=== PATIENT | female | born 1935 | race Caucasian/White ===

== ENCOUNTER 2016-06-27 11:25 | Inpatient (IN) | payer MEDICARE, OTHER ==
[~2016-06-27] VITALS: Ht 160 cm; Wt 76.6 kg
[~2016-06-27 11:25] MED LIST: ALBUTEROL0.83 MG/ML IH; AMBIEN 5MG TABLE5 MG PO; ARICEPT ODT10 MG PO; ARICEPT PO; ARICEPT10 MG PO; ASPIR-LOW81 MG PO; ATIVAN 1MG T1 MG/TAB PO; BUSPAR DIVIDOSE15 MG PO; BUSPAR5 MG PO; COLACE 100100 MG/CAP PO; ENABLEX 7.5MG7.5 MG PO; ENABLEX PO; FUROSEMIDE PO; IPRATROPIUM BROM3 M1 IH; LASIX 20MG TABL20 MG PO; LASIX 40MG TABL40 MG PO; LEVAQUIN 5500 MG/TAB PO; MVI PO; NAMENDA XR 28MG PO; OSCAL 500 TAB500 MG PO; PAXIL 10MG10 MG PO; PAXIL 30MG30 MG PEG; PAXIL 30MG30 MG PO; PAXIL40 MG PO; PREDNISONE20 MG PO; PROMETRIUM100 MG/CAP PO; RT SPIRIVA18 MCG IH; SANCTURA PO; SPIRIVA INH IN; SYNTHROID 0.0.025 MG PO; SYNTHROID0.05 MG/TA PO; THYROID; THYROID PO; TYLENOL #2 3001 TAB PO; VITAMIN D PO; ZIAC 5/6.25MG T1 TAB PO; ZYVOX 600MG600 MG PO; [UNRECOGNIZED DRUG - OTHER]; [UNRECOGNIZED DRUG - OTHER] PO
[2016-06-27] MEDS ORDERED: BUSPAR DIVIDOSE15 MG PO (12:01)
[2016-06-27] MEDS ORDERED: THE MEDICINE S200 M2 PO (12:04)
[2016-06-27] MEDS ORDERED: VITAMIN D31000 IU PO (12:04)
[2016-06-27 12:44] LABS: HEMATOCRIT 42.2 % (37.0-47.0); HEMOGLOBIN 13.6 g/dl (12.5-16.0); MEAN CELL VOLUME 92 fl (80.0-100.0); MEAN CORPUSCULAR HEMOGLOBIN 30 pg (27.0-31.0); MEAN CORPUSCULAR HGB CONC 32 g/dl (33.0-37.0); MEAN PLATELET VOLUME 10.7 fl (7.4-10.4); PLATELET COUNT 193 K/mm3 (130-400); RED BLOOD COUNT 4.59 M/mm3 (4.10-5.30); REDCELL DISTRIBUTION WIDTH-CV 12.7 % (11.5-14.5); WHITE BLOOD COUNT 18.1 K/mm3 (4.8-10.8)
[2016-06-27 12:48] LABS: ADD PATHOLOGY DIFF REVIEW NO
[2016-06-27 12:52] LABS: ADJUSTED CALCIUM 9.6 mg/dL (8.4-10.2); BILIRUBIN,TOTAL 1.1 mg/dL (0.0-1.0); CALCIUM 9.6 mg/dL (8.4-10.2); CREATININE, serum 0.76 mg/dL (0.52-1.25); POTASSIUM 4.2 mmol/L (3.4-5.0); TOTAL PROTEIN 7.7 gm/dL (6.4-8.2)
[2016-06-27 13:24] LABS: BAND 3 % (0-10); NEUTROPHILS 76 % (42.0-75.2); PLATELET ESTIMATE NORMAL (NORMAL); STOMATOCYTE 1+; TOTAL CELLS COUNTED 100
[2016-06-27 13:25] LABS: PH 6 (5-8); SQUAMOUS EPITHELIAL 0-2 /hpf; URINE APPEARANCE Hazy; URINE BACTERIA None Seen /hpf; URINE BILIRUBIN Negative (NEGATIVE); URINE BLOOD Negative (NEGATIVE); URINE COLOR Yellow; URINE GLUCOSE Negative (NEGATIVE); URINE KETONE Negative (NEGATIVE); URINE RBC 0-2 /hpf; URINE UROBILINOGEN Negative (NEGATIVE)
[2016-06-27] MEDS ORDERED: TRILEPTAL SU60 MG/ML PO (13:41)
[2016-06-27 17:53] VITALS: BP 116/66; PULSE 103; TEMP 99.5
[2016-06-27 19:57] VITALS: BP 138/62; PULSE 103; TEMP 98.4
[2016-06-27 23:46] VITALS: BP 141/68; PULSE 103; TEMP 98.5
[2016-06-28 03:56] VITALS: BP 105/42; PULSE 100; TEMP 99.2
[2016-06-28 07:02] LABS: HEMOGLOBIN 12.4 g/dl (12.5-16.0); MEAN CELL VOLUME 93 fl (80.0-100.0); MEAN CORPUSCULAR HEMOGLOBIN 30 pg (27.0-31.0); MEAN CORPUSCULAR HGB CONC 32 g/dl (33.0-37.0); MEAN PLATELET VOLUME 11.2 fl (7.4-10.4); PLATELET COUNT 201 K/mm3 (130-400); REDCELL DISTRIBUTION WIDTH-CV 12.9 % (11.5-14.5); WHITE BLOOD COUNT 16.9 K/mm3 (4.8-10.8)
[2016-06-28 07:07] LABS: ADD PATHOLOGY DIFF REVIEW NO
[2016-06-28 07:11] LABS: CALCIUM 9.2 mg/dL (8.4-10.2); CREATININE, serum 0.96 mg/dL (0.52-1.25); POTASSIUM 3.3 mmol/L (3.4-5.0)
[2016-06-28 07:34] LABS: BAND 15 % (0-10); NEUTROPHILS 66 % (42.0-75.2); PLATELET ESTIMATE NORMAL (NORMAL); TOTAL CELLS COUNTED 100
[2016-06-28 07:48] VITALS: BP 135/68; PULSE 96; TEMP 98.6
[2016-06-28 12:43] VITALS: BP 117/71; PULSE 107; TEMP 98.1
[2016-06-28 15:56] VITALS: BP 121/53; PULSE 103; TEMP 98.9
[2016-06-28 19:52] VITALS: BP 152/63; PULSE 107; TEMP 98.3
[2016-06-28 22:57] VITALS: BP 139/53; PULSE 106; TEMP 98.4
[2016-06-29 04:00] VITALS: BP 127/54; PULSE 104; TEMP 98.7
[2016-06-29 07:15] VITALS: BP 111/61; PULSE 95; TEMP 98
[2016-06-29 08:26] LABS: HEMATOCRIT 39.3 % (37.0-47.0); HEMOGLOBIN 12.4 g/dl (12.5-16.0); MEAN CELL VOLUME 93 fl (80.0-100.0); MEAN CORPUSCULAR HEMOGLOBIN 29 pg (27.0-31.0); MEAN CORPUSCULAR HGB CONC 32 g/dl (33.0-37.0); PLATELET COUNT 232 K/mm3 (130-400); RED BLOOD COUNT 4.22 M/mm3 (4.10-5.30); REDCELL DISTRIBUTION WIDTH-CV 13.1 % (11.5-14.5); WHITE BLOOD COUNT 15.1 K/mm3 (4.8-10.8)
[2016-06-29 08:39] LABS: CALCIUM 9.8 mg/dL (8.4-10.2); CREATININE, serum 0.95 mg/dL (0.52-1.25); MAGNESIUM 2.5 mg/dL (1.6-2.3); POTASSIUM 3.8 mmol/L (3.4-5.0)
[2016-06-29 11:32] VITALS: BP 111/72; PULSE 100; TEMP 97.9
[2016-06-29 16:40] VITALS: BP 149/73; PULSE 90; TEMP 97.4
[2016-06-29 20:12] VITALS: BP 133/69; PULSE 102; TEMP 98.2
[2016-06-29 22:41] VITALS: BP 146/63; PULSE 99; TEMP 98.5
[2016-06-30 03:54] VITALS: BP 145/54; PULSE 90; TEMP 98.6
[2016-06-30 08:32] VITALS: BP 125/57; PULSE 74; TEMP 97.4
[2016-06-30 09:16] LABS: HEMATOCRIT 41.3 % (37.0-47.0); HEMOGLOBIN 12.9 g/dl (12.5-16.0); MEAN CELL VOLUME 94 fl (80.0-100.0); MEAN CORPUSCULAR HEMOGLOBIN 30 pg (27.0-31.0); MEAN CORPUSCULAR HGB CONC 31 g/dl (33.0-37.0); MEAN PLATELET VOLUME 10.9 fl (7.4-10.4); PLATELET COUNT 257 K/mm3 (130-400); RED BLOOD COUNT 4.38 M/mm3 (4.10-5.30); REDCELL DISTRIBUTION WIDTH-CV 12.9 % (11.5-14.5); WHITE BLOOD COUNT 13.5 K/mm3 (4.8-10.8)
[2016-06-30 09:22] LABS: ADD PATHOLOGY DIFF REVIEW NO
[2016-06-30 09:29] LABS: CALCIUM 9.8 mg/dL (8.4-10.2); CREATININE, serum 0.88 mg/dL (0.52-1.25); MAGNESIUM 2.6 mg/dL (1.6-2.3); POTASSIUM 3.6 mmol/L (3.4-5.0)
[2016-06-30 09:31] LABS: BAND 5 % (0-10); EOSINOPHIL 3 % (0-4); NEUTROPHILS 68 % (42.0-75.2); TOTAL CELLS COUNTED 100
[2016-06-30 12:51] VITALS: BP 130/66; PULSE 80; TEMP 97.8
[2016-06-30 16:51] VITALS: BP 129/60; PULSE 76; TEMP 98.4
[2016-06-30 19:50] VITALS: BP 138/87; PULSE 82; TEMP 98.3
[2016-06-30 23:07] VITALS: BP 149/52; PULSE 82; TEMP 98
[2016-07-01 05:02] VITALS: BP 125/74; PULSE 67; TEMP 98.7
[2016-07-01 07:23] VITALS: BP 136/76; PULSE 95; TEMP 97.9
[2016-07-01] MEDS ORDERED: CIPRO 250MG TA250 MG PO (08:05)
[2016-07-01] MEDS ORDERED: IPRATROPIUM BROM3 M1 IH (08:06)
[2016-07-01] MEDS ORDERED: LASIX 20MG TABL20 MG PO (08:06)
[2016-07-01 11:18] VITALS: BP 114/70; PULSE 96; TEMP 98
[2016-07-01 16:00] VITALS: BP 114/70; PULSE 96; TEMP 98
== END 2016-07-01 16:30 | DRG 291 ==
LOC: COL.ER 11:25 → MEDICAL 15:43
PROVIDERS: Emergency Medicine; Internal Medicine Hospice and Palliative Medicine
DX: I11.0 Hypertensive heart disease with heart failure (principal); J96.01 Acute respiratory failure with hypoxia; N39.0 Urinary tract infection, site not specified; I50.33 Acute on chronic diastolic (congestive) heart failure; G30.9 Alzheimer's disease, unspecified; F02.80 Dementia in other diseases classified elsewhere, unspecified severity, without behavioral disturbance, psychotic disturbance, mood disturbance, and anxiety; J44.9 Chronic obstructive pulmonary disease, unspecified; B96.20 Unspecified Escherichia coli [E. coli] as the cause of diseases classified elsewhere; Z87.891 Personal history of nicotine dependence
CPT/HCPCS: 99222-AI; 99232-AI; 99239; G0378; J1650; J1940; J1956; J7040